=== PATIENT | male | born 1935 | race Caucasian/White ===

== ENCOUNTER → 2018-09-12 | Day surgery (SDC) | payer MEDICARE ==
--- NOTE | 2018-09-10 13:50 | Diagnostic Imaging Report ---
EXAMINATION: CHEST 2 VIEWS INDICATION: Preoperative COMPARISON: None FINDINGS: TUBES and LINES: None. LUNGS: The lung volumes are normal. No focal consolidation or pulmonary edema. PLEURA: No pleural effusion or pneumothorax. HEART AND MEDIASTINUM: The cardiomediastinal silhouette is normal in size and contour. BONES AND SOFT TISSUES: No acute fracture or dislocation. Atherosclerotic calcifications of the thoracic aorta. UPPER ABDOMEN: No free air under the diaphragm. Status post cholecystectomy. IMPRESSION: No focal pneumonia or pulmonary edema. Signed by: Ryan Dyer MD on 09/10/2018 1:47 PM
[2018-09-10 13:59] LABS: BASOPHILS # (AUTO) 0.1 (0.0-0.1); BASOPHILS % 1.2 % (0.0-1.0); EOSINOPHILS # (AUTO) 0.4 (0.0-0.4); EOSINOPHILS % 5.2 % (0.0-6.0); HEMATOCRIT 44.3 % (38.2-49.6); HEMOGLOBIN 14.9 g/dL (14.0-18.0); LYMPHOCYTES # (AUTO) 5.2 (1.0-3.2); LYMPHOCYTES % 61.3 % (18.0-39.1); MEAN CORPUSCULAR HEMOGLOBIN 32.6 pg (28-32); MEAN CORPUSCULAR HGB CONC 33.6 g/dL (31-35); MEAN CORPUSCULAR VOLUME 96.9 fL (81-99); MONOCYTES # (AUTO) 0.7 (0.2-0.8); MONOCYTES % 8.5 % (4.4-11.3); NEUTROPHILS % 23.6 % (38.7-80.0); PLATELET COUNT 211 x10e3/uL (140-360); RED BLOOD COUNT 4.57 x10e6/uL (4.3-5.7); RED CELL DISTRIBUTION WIDTH 13.9 % (11.7-14.4)
[2018-09-10 15:18] LABS: EOSINOPHILS % (MANUAL) 6 % (0-7); LYMPHOCYTES % (MANUAL) 60 % (19-48); MONOCYTES % (MANUAL) 7 % (3.4-9.0); NEUTROPHILS % (MANUAL) 27 % (40-74); PLATELET ESTIMATE ADEQUATE; PLATELET MORPHOLOGY COMMENT NORMAL; RBC MORPHOLOGY COMMENT NORMAL
[~2018-09-12] MED LIST: ASPIRIN81 M2 PO; B&O 60MG R/S 60 MG SUPP PR ONE; CEFTRIAXONE SOD 1 GM/NS 50 ML 50 ML IV ONE; CIPRO500 MG PO; DEXAMETHASONE SOD PHOS INJ 4 MG/ML VIAL ONE; FISH OIL 1,2001 EACH PO; IOPAMIDOL 610MG/1ML 300 MG/ML VIAL IV ONE; LEVAQUIN500 MG PO; LIDOCAINE HCL 2% LOCAL INJ 5 ML SDV VIAL INJ ONE; ONDANSETRON HCL INJ 2MG/ML 2ML 2 MG/ML VIAL ONE; PROPOFOL IV EMULSION 10 MG/ML 20 ML VIAL ONE; SEVOFLURANE INHAL SOLN 250 ML PEN BTL ONE; TYLENOL WITH C1 EACH PO; VITAMIN D31000 UNIT PO; Z.0.AMIODARONE HCL20 PO; Z.0.GABAPENTIN300 MG PO; Z.0.GEMFIBROZIL600 M PO; Z.0.LEVOTHYROXINE50 PO; Z.0.LOVASTATIN40 MG PO; Z.0.PLAVIX75 MG PO; Z.2.DOXAZOSIN MESYLA PO
--- OUTSIDE RECORDS SUMMARY | 2018-09-12 09:42 | XMS REPORT | Summary of Care ---
Author Author [facility] [place] Organization [facility] [place] Address Unknown Phone Unavailable Encounter HQ Encntr_alias(FIN) [id number] Date(s): 04/11/17 - 04/11/17 [facility] [place] [address] [place] [address]- [phone] Encounter Diagnosis Acute bronchitis, unspecified (Final) - 04/15/17 Atelectasis (Final) - Discharge Disposition: Home or Self Care Attending Physician: Adama Larsen MD Vital Signs No data available for this section Problem List No data available for this section Allergies, Adverse Reactions, Alerts Substance Reaction Severity Status NKDA Active Medications No data available for this section Results No data available for this section Immunizations No data available for this section Procedures No data available for this section Social History No data available for this section Assessment and Plan No data available for this section
--- OUTSIDE RECORDS SUMMARY | 2018-09-12 09:42 | XMS REPORT | Summary of Care ---
Author Organization Unknown Address Unknown Phone Unavailable Encounter HQ Reyntr_celso([facility]) [id number] Date(s): 01/08/14 - 01/08/14 [facility] Outpatient Imaging - [address] [address]- [place] Discharge Disposition: Home Physician Attending: Adama Larsen MD Reason for Visit 414.01 - CRNRY ATHRSCL N Problem List No data available for this section Allergies, Adverse Reactions, Alerts Substance Reaction Severity Status NKDA Active Medications No data available for this section Medications Administered During Your Visit No data available for this section Immunizations No data available for this section
--- OUTSIDE RECORDS SUMMARY | 2018-09-12 09:42 | XMS REPORT | Continuity of Care Document ---
Author Author [facility] Organization [facility] Address Unknown Phone Unavailable Care Team Providers Care Pile Trimmer Name Role Phone [employer] [place] Unavailable Unavailable Problems Problem Status Onset Date Classification Date Reported Comments Source Acute bronchitis, unspecified 04/16/2017 07/18/2017 [facility] [place] J20.9 - ACUTE BRONCHITIS, UNSPECIFIED Active 04/11/2017 [facility] [place] PICC FOR UTI Active 08/05/2013 [facility] Atelectasis 07/18/2017 [facility] [place] Medications No Data Provided for This Section Allergies, Adverse Reactions, Alerts No Known Medication Allergies Immunizations No Data Provided for This Section Results No Data Provided for This Section Pathology Reports No Data Provided for This Section Diagnostic Reports Report Value Date Source Chest 2 views DX Exam: Two-view chest x-ray Reason for Exam: - J20.9 Acute bronchitis, unspecified Comparison Exam: X-ray 01/08/2014 Discussion: Cardiomediastinal silhouette is within normal limits. Both hemidiaphragms well visualized. No pulmonary edema or pleural effusions. Mild atelectasis seen within the left lung base. Trachea is midline. No acute bony abnormalities. Impression: 1. Mild atelectasis seen within the left lung base. 04/11/2017 [facility] [place] Chest 2 views CHEST RADIOGRAPHY CLINICAL HISTORY: CAD COMPARISON IMAGIN08/07/2013 FINDINGS: Two views of the chest were acquired and submitted for evaluation. Interval removal of right-sided PICC line. No pneumothorax. No pleural fluid is identified. The contour of the cardiac silhouette is within normal limits. There is no significant pulmonary consolidation or nodularity. Degenerative changes of the spine noted. IMPRESSION: No significant abnormality. 01/08/2014 [facility] [place] Chest 1view PORTABLE CHEST (chest 1 view) 08/07/2013 @ 8: 43 HISTORY: Status post PICC placement. Evaluate catheter position. TECHNIQUE: A portable examination of the chest was obtained following PICC placement. A study 05/05/2008 was reviewed. FINDINGS: 1. The tip of the right upper extremity PICC is in the upper superior vena cava. The catheter is in good position to utilize for venous access. 2. No active disease. The lungs are clear. There are no pleural effusions per there is mild chronic elevation the right hemidiaphragm. 3. Mild cardiomegaly without overt failure. 4. The regional skeleton is unremarkable. Coding: Chest 1view CPT Code: 11822 SL: 13 Cisco Allen M.D. 08/07/2013 [facility] Consultation Notes No Data Provided for This Section Discharge Summaries No Data Provided for This Section History and Physicals No Data Provided for This Section Vital Signs Vital Sign Value Date Comments Source BMI Calculated 36.92 08/07/2013 [facility] Weight 94.545 08/07/2013 [facility] Height 160.02 cm 08/07/2013 [facility] Encounters Location Location Details Encounter Type Encounter Number Reason For Visit Attending Provider ADM Date DC Date Status Source [facility] Outpatient [id number] Miguel Hampel 08/07/2013 08/08/2013 [facility] - [place] Outpt Diag Services [id number] Adama Larsen 01/08/2014 01/09/2014 [facility] [place] [facility] Outpatient [facility] - [place] Outpt Diag Services [id number] Adama Larsen 04/11/2017 04/12/2017 [facility] [place] Procedures No Data Provided for This Section Assessment and Plan No Data Provided for This Section Plan of Care No Data Provided for This Section Social History Social History Date Source No data available for this section 04/12/2017 [facility] [place] Family History No Data Provided for This Section Advance Directives No Data Provided for This Section Functional Status No Data Provided for This Section
--- OUTSIDE RECORDS SUMMARY | 2018-09-12 09:42 | XMS REPORT | Summary of Care ---
Author Organization Unknown Address Unknown Phone Unavailable Encounter HQ Reyntr_nelfransisco([facility]) [id number] Date(s): 08/07/13 - 08/07/13 [facility] [address] [place], [place] [id number] [place] [address] Discharge Disposition: Home Physician Attending: Miguel Kaiser MD Physician_Referring: Miguel Kaiser MD Reason for Visit PICC FOR UTI Vital Signs Most recent to 1 oldest [Reference Range]: Height 160.02 cm (08/07/13 8:33 AM) Weight 94.545 kg (08/07/13 8:33 AM) Body Mass Index 36.92 m2 (08/07/13 8:33 AM) Problem List No data available for this section Allergies, Adverse Reactions, Alerts Substance Reaction Severity Status NKDA Active Medications No data available for this section Medications Administered During Your Visit No data available for this section Immunizations No data available for this section
--- OUTSIDE RECORDS SUMMARY | 2018-09-12 09:42 | XMS REPORT ---
Author Author [facility] Address Unknown Phone Unavailable Care Team Providers Care Regional Agronomist Name Role Phone LINDA STONE Unavailable Unavailable Problems This patient has no known problems. Allergies, Adverse Reactions, Alerts This patient has no known allergies or adverse reactions. Medications This patient has no known medications. Results Test Description Test Time Test Comments Text Results Atomic Results Result Comments CHEST 2 VIEWS 2018-09-10 13:45:00 [place] [address] Patient Name: CARTER STOVER MR #: [id number] : 1935 Age/Sex: 83/M Req #: [id number] Adm Physician: Ordered by: LINDA STONE MD Report #: [id number] Location: OR Room/Bed: Procedure: [id number] DX/CHEST 2 VIEWS Exam Date: Exam Time: REPORT STATUS: Signed EXAMINATION: CHEST 2 VIEWS INDICATION: Preoperative COMPARISON: None FINDINGS: TUBES and LINES: None. LUNGS: The lung volumes are normal. No focal consolidation or pulmonary edema. PLEURA: No pleural effusion or pneumothorax. HEART AND MEDIASTINUM: The cardiomediastinal silhouette is normal in size and contour. BONES AND SOFT TISSUES: No acute fracture or dislocation. Atherosclerotic calcifications of the thoracic aorta. UPPER ABDOMEN: No free air under the diaphragm. Status post cholecystectomy. IMPRESSION: No focal pneumonia or pulmonary edema. Signed by: Kristy Dyer MD on 09/10/2018 1:47 PM Dictated By: KRISTY DYER MD [id number] Transcribed By: LYNDSEY on 09/10/18 1347 COPY TO: LINDA STONE MD
[2018-09-12 13:09] VITALS: BP 134/69
--- NOTE | 2018-10-25 10:43 | Operative Report ---
DATE OF PROCEDURE: 09/12/2018 SURGEON: Miguel Kaiser MD PREOPERATIVE DIAGNOSIS: Gross hematuria. POSTOPERATIVE DIAGNOSIS: Gross hematuria. OPERATIONS PERFORMED: 1. Cystourethroscopy with bilateral ureteral catheterization and retrograde ureteropyelography. 2. Interpretation of retrograde ureteropyelography. 3. Supervision of fluoroscopy, no radiologist is present. ANESTHESIA: General. COMPLICATIONS: None. SUMMARY: Mihai Min is an 83-year-old man with a previous transurethral resection of the prostate remotely. The patient has had gross hematuria and he was brought for evaluation. He is aware of the risks of bleeding, infection, injury to adjacent structures, need for procedures, and elected to proceed. OPERATIVE PROCEDURE IN DETAIL: Informed consent was verified. Mihai Min was properly identified and taken to the operative room, placed on the cystoscopy table in supine position. Anesthesia was uneventfully begun. The patient was then carefully and gently repositioned in the dorsal lithotomy position with all pressure points were well padded. His genitalia were prepared and draped in usual sterile fashion. The 22.5-Azeri cystoscope sheath with visual obturator in place, it was atraumatically inserted into the patient's urethra, it was guided down the unremarkable distal urethra through some wide caliber, probably not clinically significant stricturing in the bulbar urethra. We passed a normal sphincteric region and we went into the prostate bed. Prostate bed was significant for regrowth of BPH with visual obstruction as well as some effusion and adhesions between the lateral lobes. This was causing visual obstruction especially at the distal portion of the prostatic urethra. We entered the patient's bladder and where panendoscopy revealed grade 3 trabeculations with diffuse cellule formation. Normally positioned configured ureteral orifices were identified. An 8-Azeri catheter was used to cannulate each ureter and retrograde ureteropyelography was performed. Interpretation of retrograde ureteropyelography, contrast was instilled in retrograde fashion bilaterally. There were no tumors, no stones, and no diverticula, bilateral J hooking was noted. No suspicious lesions were identified. There were no stones, and there was no obstruction. The patient's bladder was drained. The cystoscope was withdrawn. A belladonna and opium suppositories were placed revealing a 15 g prostate that was smooth, non-fluctuant without any nodules. The patient was then uneventfully reversed from anesthesia and taken to recovery room in stable condition. There were no complications during the procedure. He tolerated the procedure well. Plan will be to return the patient to the operating room for transurethral resection of the prostate for regrowth and obstructive BPH. Since no other source for bleeding was identified, it was presumed that the source of the bleeding is the BPH. Miguel MD BENJI Kaiser/CATIE /[id number] cc: Tanner Batista
== END | disposition home or self-care (01) ==
LOC: OR 09:39
PROVIDERS: ATTEND Urology
DX: R31.0 Gross hematuria (principal); Z98.890 Other specified postprocedural states; N32.89 Other specified disorders of bladder; N40.1 Benign prostatic hyperplasia with lower urinary tract symptoms; N13.8 Other obstructive and reflux uropathy; R39.12 Poor urinary stream; R35.1 Nocturia; R30.0 Dysuria; R39.14 Feeling of incomplete bladder emptying; R97.20 Elevated prostate specific antigen [PSA]; R33.8 Other retention of urine; N41.1 Chronic prostatitis; N47.6 Balanoposthitis; D40.0 Neoplasm of uncertain behavior of prostate; Q54.9 Hypospadias, unspecified; N47.1 Phimosis; I13.0 Hypertensive heart and chronic kidney disease with heart failure and stage 1 through stage 4 chronic kidney disease, or unspecified chronic kidney disease; N18.9 Chronic kidney disease, unspecified; I50.9 Heart failure, unspecified; I25.10 Atherosclerotic heart disease of native coronary artery without angina pectoris; I48.91 Unspecified atrial fibrillation; E78.00 Pure hypercholesterolemia, unspecified; J44.9 Chronic obstructive pulmonary disease, unspecified; E78.5 Hyperlipidemia, unspecified; E03.9 Hypothyroidism, unspecified; E66.9 Obesity, unspecified; Z79.02 Long term (current) use of antithrombotics/antiplatelets; Z79.82 Long term (current) use of aspirin; Z68.35 Body mass index [BMI] 35.0-35.9, adult; Z95.5 Presence of coronary angioplasty implant and graft; Z87.891 Personal history of nicotine dependence; Z01.810 Encounter for preprocedural cardiovascular examination; Z01.812 Encounter for preprocedural laboratory examination; Z01.818 Encounter for other preprocedural examination; Z86.73 Personal history of transient ischemic attack (TIA), and cerebral infarction without residual deficits
CPT/HCPCS: 36415; 52005; 71046; 74420; 85025; 93005; C1758; J0696; J1100; J2001; J2405; J2704; Q9967

== ENCOUNTER 2018-10-29 07:01 | Inpatient (IN) | payer MEDICARE ==
[2018-10-24 16:03] LABS: BASOPHILS # (AUTO) 0.1 (0.0-0.1); BASOPHILS % 0.9 % (0.0-1.0); EOSINOPHILS # (AUTO) 0.4 (0.0-0.4); EOSINOPHILS % 4.6 % (0.0-6.0); HEMATOCRIT 43.8 % (38.2-49.6); HEMOGLOBIN 15.2 g/dL (14.0-18.0); LYMPHOCYTES # (AUTO) 5.1 (1.0-3.2); LYMPHOCYTES % 56.8 % (18.0-39.1); MEAN CORPUSCULAR HEMOGLOBIN 33.1 pg (28-32); MEAN CORPUSCULAR HGB CONC 34.7 g/dL (31-35); MEAN CORPUSCULAR VOLUME 95.4 fL (81-99); MONOCYTES # (AUTO) 0.8 (0.2-0.8); MONOCYTES % 8.6 % (4.4-11.3); NEUTROPHILS # (AUTO) 2.6 (2.1-6.9); NEUTROPHILS % 28.8 % (38.7-80.0); PLATELET COUNT 223 x10e3/uL (140-360); RED BLOOD COUNT 4.59 x10e6/uL (4.3-5.7); RED CELL DISTRIBUTION WIDTH 13.9 % (11.7-14.4)
[2018-10-24 16:41] LABS: EOSINOPHILS % (MANUAL) 3 % (0-7); LYMPHOCYTES % (MANUAL) 53 % (19-48); MONOCYTES % (MANUAL) 8 % (3.4-9.0); NEUTROPHILS % (MANUAL) 36 % (40-74); PLATELET ESTIMATE ADEQUATE; PLATELET MORPHOLOGY COMMENT NORMAL; RBC MORPHOLOGY COMMENT NORMAL
[~2018-10-29] VITALS: Ht 160 cm; Wt 98.8 kg
[~2018-10-29 07:01] MED LIST changes: -B&O 60MG R/S 60 MG SUPP PR ONE; -CEFTRIAXONE SOD 1 GM/NS 50 ML 50 ML IV ONE; -CIPRO500 MG PO; -DEXAMETHASONE SOD PHOS INJ 4 MG/ML VIAL ONE; -IOPAMIDOL 610MG/1ML 300 MG/ML VIAL IV ONE; -LEVAQUIN500 MG PO; -LIDOCAINE HCL 2% LOCAL INJ 5 ML SDV VIAL INJ ONE; -ONDANSETRON HCL INJ 2MG/ML 2ML 2 MG/ML VIAL ONE; -PROPOFOL IV EMULSION 10 MG/ML 20 ML VIAL ONE; -SEVOFLURANE INHAL SOLN 250 ML PEN BTL ONE; -TYLENOL WITH C1 EACH PO
--- OUTSIDE RECORDS SUMMARY | 2018-10-29 07:09 | XMS REPORT | Continuity of Care Document ---
Author Author [facility] Address Unknown Phone Unavailable Care Team Providers Care Online Communications Manager Name Role Phone [employer] Unavailable Unavailable Problems Problem Status Onset Date Classification Date Reported Comments Source Acute bronchitis, unspecified 04/16/2017 07/18/2017 [facility] [place] J20.9 - ACUTE BRONCHITIS, UNSPECIFIED Active 04/11/2017 [facility] [place] PICC FOR UTI Active 08/05/2013 [facility] Atelectasis 07/18/2017 [facility] [place] Medications No Data Provided for This Section [...] within the left lung base. 04/11/2017 [facility] [place] Chest 2 views CHEST RADIOGRAPHY CLINICAL HISTORY: [...] noted. IMPRESSION: No significant abnormality. 01/08/2014 [facility] [place] Chest 1view PORTABLE CHEST (chest 1 view) [...] is unremarkable. Coding: Chest 1view CPT Code: 85191 SL: 13 Cisco Allen M.D. 08/07/2013 [facility] Consultation Notes No Data Provided for This Section Discharge Summaries No Data Provided for This Section History and Physicals No Data Provided for This Section Vital Signs Vital Sign Value Date Comments Source BMI Calculated 36.92 08/07/2013 [facility] Weight 94.545 08/07/2013 [facility] Height 160.02 cm 08/07/2013 [facility] Encounters Location Location Details Encounter Type Encounter Number Reason For Visit Attending Provider ADM Date DC Date Status Source [facility] Outpatient [id number] Miguel Hampel 08/07/2013 08/08/2013 [facility] Outpatient Imaging - [place] Outpt Diag Services [id number] Adama Larsen 01/08/2014 01/09/2014 [facility] [place] [facility] Outpatient Imaging - [place] Out[facility] Di[facility] [id number] Adama Larsen 04/11/2017 04/12/2017 [facility] [place] Procedures No Data Provided for This Section Assessment and Plan No Data Provided for This Section Plan of Care No Data Provided for This Section Social History Social History Date Source No data available for this section 04/12/2017 [facility] [place] Family History No Data Provided for This Section Advance Directives No Data Provided for This Section Functional Status No Data Provided for This Section
[2018-10-29] MEDS ORDERED: GENTAMICIN 80MG/NS 100 ML 100 ML IV ONE (07:34)
[2018-10-29] MEDS ORDERED: CEFTRIAXONE SOD 1 GM/NS 50 ML 50 ML IV ONE (07:35)
[2018-10-29] MEDS ORDERED: B&O 60MG R/S 60 MG SUPP PR ONE (09:20)
[2018-10-29] MEDS ORDERED: IOPAMIDOL 610MG/1ML 300 MG/ML VIAL IV ONE (09:20)
[2018-10-29] MEDS ORDERED: B&O 60MG R/S 60 MG SUPP PR PRN (12:45)
[2018-10-29] MEDS ORDERED: ACETAMINOPHEN/CODEINE 300MG - 30MG TAB PO PRN (12:45)
[2018-10-29] MEDS ORDERED: DIPHENHYDRAMINE HCL 25 MG CAP PO PRN (12:45)
[2018-10-29] MEDS ORDERED: ONDANSETRON HCL INJ 2MG/ML 2ML 2 MG/ML VIAL IV PRN (12:45)
--- OUTSIDE RECORDS SUMMARY | 2018-10-29 12:51 | XMS REPORT | Continuity of Care Document ---
Author Author [facility] Organization [facility] Address Unknown Phone Unavailable Care Team Providers Care Sustainable Design Consultant Name Role Phone [email or web address] Information [employer] Unavailable Unavailable Problems Problem Status Onset Date Classification Date Reported Comments Source Acute bronchitis, unspecified 04/16/2017 07/18/2017 [facility] [place] J20.9 - ACUTE BRONCHITIS, UNSPECIFIED Active 04/11/2017 [facility] [place] PICC FOR UTI Active 08/05/2013 [facility] Atelectasis 07/18/2017 [facility] [place] Medications No Data Provided for This Section [...] within the left lung base. 04/11/2017 [facility] [place] Chest 2 views CHEST RADIOGRAPHY CLINICAL HISTORY: [...] noted. IMPRESSION: No significant abnormality. 01/08/2014 [facility] [place] Chest 1view PORTABLE CHEST (chest 1 view) [...] is unremarkable. Coding: Chest 1view CPT Code: 97560 SL: 13 Cisco Allen M.D. 08/07/2013 [facility] Consultation Notes No Data Provided for This Section Discharge Summaries No Data Provided for This Section History and Physicals No Data Provided for This Section Vital Signs Vital Sign Value Date Comments Source BMI Calculated 36.92 08/07/2013 [facility] Weight 94.545 08/07/2013 [facility] Height 160.02 cm 08/07/2013 [facility] Encounters Location Location Details Encounter Type Encounter Number Reason For Visit Attending Provider ADM Date DC Date Status Source [facility] Outpatient [id number] Miguel Hampel 08/07/2013 08/08/2013 [facility] Outpatient Imaging - [place] Outpt Diag Services [id number] Adama Larsen 01/08/2014 01/09/2014 [facility] [place] [facility] Outpatient Imaging - [place] Outpt Diag Services [id number] Adama Larsen 04/11/2017 04/12/2017 [facility] [place] Procedures No Data Provided for This Section Assessment and Plan No Data Provided for This Section Plan of Care No Data Provided for This Section Social History Social History Date Source No data available for this section 04/12/2017 [facility] [place] Family History No Data Provided for This Section Advance Directives No Data Provided for This Section Functional Status No Data Provided for This Section
[2018-10-29] MEDS ORDERED: FENTANYL CITRATE/PF 100MCG/2 ML INJ ONE ×2 (13:07→18:34)
[2018-10-29] MEDS ORDERED: CEFTRIAXONE SOD 1 GM VIAL IV SCH (15:00)
[2018-10-29] MEDS: D5.45%NS/KCL 20MEQ 1,000 ML IV SCH (15:30)
[2018-10-29 15:47] VITALS: BP 158/80
[2018-10-29 15:58] LABS: BASOPHILS % 0.3 % (0.0-1.0); EOSINOPHILS # (AUTO) 0.1 (0.0-0.4); EOSINOPHILS % 0.6 % (0.0-6.0); HEMATOCRIT 47.7 % (38.2-49.6); HEMOGLOBIN 16.3 g/dL (14.0-18.0); LYMPHOCYTES # (AUTO) 1.5 (1.0-3.2); LYMPHOCYTES % 17.4 % (18.0-39.1); MEAN CORPUSCULAR HEMOGLOBIN 32.9 pg (28-32); MEAN CORPUSCULAR HGB CONC 34.2 g/dL (31-35); MEAN CORPUSCULAR VOLUME 96.2 fL (81-99); MONOCYTES # (AUTO) 0.1 (0.2-0.8); MONOCYTES % 1.6 % (4.4-11.3); NEUTROPHILS # (AUTO) 6.8 (2.1-6.9); NEUTROPHILS % 78.8 % (38.7-80.0); PLATELET COUNT 223 x10e3/uL (140-360); RED BLOOD COUNT 4.96 x10e6/uL (4.3-5.7); RED CELL DISTRIBUTION WIDTH 14.4 % (11.7-14.4)
[2018-10-29] MEDS: CEFTRIAXONE SOD 1 GM/NS 50 ML 50 ML IV SCH (16:13)
[2018-10-29 16:14] LABS: ANION GAP 13.1 mmol/L (8-16); BLOOD UREA NITROGEN 9 mg/dL (7-26); BUN/CREATININE RATIO 10 (6-25); CALCIUM 9.6 mg/dL (8.4-10.2); CARBON DIOXIDE 27 mmol/L (22-29); CHLORIDE 102 mmol/L (98-107); CREATININE, SERUM 0.88 mg/dL (0.72-1.25); EST GLOMERULAR FILTRATION RATE > 60 ML/MIN (60-); GLUCOSE 117 mg/dL (74-118); POTASSIUM 4.1 mmol/L (3.5-5.1); SODIUM 138 mmol/L (136-145)
[2018-10-29] MEDS: PHENAZOPYRIDINE HCL 100 MG TAB PO SCH ×2 (16:22→18:00)
[2018-10-29] MEDS: DOCUSATE SODIUM 100 MG CAP PO SCH (16:23)
[2018-10-29] MEDS ORDERED: ONDANSETRON HCL INJ 2MG/ML 2ML 2 MG/ML VIAL ONE (18:25)
[2018-10-29] MEDS ORDERED: PROPOFOL IV EMULSION 10 MG/ML 20 ML VIAL ONE (18:25)
[2018-10-29] MEDS ORDERED: DEXAMETHASONE SOD PHOS INJ 4 MG/ML VIAL ONE (18:25)
[2018-10-29] MEDS ORDERED: SEVOFLURANE INHAL SOLN 250 ML PEN BTL ONE (18:25)
[2018-10-29] MEDS ORDERED: LIDOCAINE HCL 2% LOCAL INJ 5 ML SDV VIAL INJ ONE (18:25)
[2018-10-29] MEDS ORDERED: EPHEDRINE SULFATE INJ 50 MG/10 ML SYR ONE (18:25)
--- NOTE | 2018-10-29 19:00 | NUR ---
RECEIVED PATIENT IN BEDSIDE REPORT. PATIENT RESTING IN BED AT THIS TIME. PATIENT REPORTS PAIN IS TOLERABLE WITH CBI FLOWING WELL. NO S&S OF DISTRESS NOTED. BED LOCKED IN LOWEST POSITION, SIDE RAILS UPX2, CALL LIGHT IN REACH.
[2018-10-29 20:00] VITALS: BP 120/70
[2018-10-29 20:36] VITALS: BP 120/70
[2018-10-29] MEDS: SIMVASTATIN 20 MG TAB PO SCH (20:50)
[2018-10-29] MEDS: GABAPENTIN 300 MG CAP PO SCH (21:18)
[2018-10-30] VITALS (7 sets, daily range): BP systolic 108–125; BP diastolic 56–64
[2018-10-30] MEDS: D5.45%NS/KCL 20MEQ 1,000 ML IV SCH (01:01)
--- NOTE | 2018-10-30 04:31 | NUR ---
CONTINUOUS BLADDER IRRIGATION CONTINUES. PATIENT STATES IT BEGINS TO HURT MORE WHEN RATE IS DECREASED. URINE PINK. WILL CONTINUE TO MONITOR.
[2018-10-30] MEDS: LEVOTHYROXINE SODIUM 50 MCG TAB PO SCH (05:36)
[2018-10-30 06:29] LABS: BASOPHILS # (AUTO) 0.1 (0.0-0.1); BASOPHILS % 0.3 % (0.0-1.0); EOSINOPHILS % 0.1 % (0.0-6.0); HEMATOCRIT 45.6 % (38.2-49.6); HEMOGLOBIN 15.3 g/dL (14.0-18.0); LYMPHOCYTES # (AUTO) 2.2 (1.0-3.2); MEAN CORPUSCULAR HEMOGLOBIN 32.4 pg (28-32); MEAN CORPUSCULAR HGB CONC 33.6 g/dL (31-35); MEAN CORPUSCULAR VOLUME 96.6 fL (81-99); MONOCYTES # (AUTO) 0.6 (0.2-0.8); MONOCYTES % 4.2 % (4.4-11.3); NEUTROPHILS # (AUTO) 11.8 (2.1-6.9); NEUTROPHILS % 79.9 % (38.7-80.0); PLATELET COUNT 216 x10e3/uL (140-360); RED BLOOD COUNT 4.72 x10e6/uL (4.3-5.7); RED CELL DISTRIBUTION WIDTH 14.1 % (11.7-14.4)
[2018-10-30 06:44] LABS: ANION GAP 11.7 mmol/L (8-16); BLOOD UREA NITROGEN 11 mg/dL (7-26); BUN/CREATININE RATIO 11 (6-25); CALCIUM 9.1 mg/dL (8.4-10.2); CARBON DIOXIDE 22 mmol/L (22-29); CHLORIDE 104 mmol/L (98-107); CREATININE, SERUM 0.97 mg/dL (0.72-1.25); EST GLOMERULAR FILTRATION RATE > 60 ML/MIN (60-); GLUCOSE 167 mg/dL (74-118); POTASSIUM 4.7 mmol/L (3.5-5.1); SODIUM 133 mmol/L (136-145)
[2018-10-30 07:00] LABS: LYMPHOCYTES % (MANUAL) 16 % (19-48); MONOCYTES % (MANUAL) 10 % (3.4-9.0); NEUTROPHILS % (MANUAL) 74 % (40-74)
[2018-10-30 07:01] LABS: PLATELET ESTIMATE SLIGHTLY INCREASED; RBC MORPHOLOGY COMMENT NORMAL
[2018-10-30] MEDS: PHENAZOPYRIDINE HCL 100 MG TAB PO SCH ×3 (08:48→17:43)
[2018-10-30] MEDS: GABAPENTIN 300 MG CAP PO SCH ×2 (08:48→20:11)
[2018-10-30] MEDS: OMEGA 3 POLYUNSAT FATTY ACIDS 1000 MG SOFTGEL PO SCH ×4 (08:48→20:11)
[2018-10-30] MEDS: DOCUSATE SODIUM 100 MG CAP PO SCH ×2 (08:48→17:43)
[2018-10-30] MEDS: CHOLECALCIFEROL 1,000 UNIT TAB PO SCH (08:48)
--- NOTE | 2018-10-30 13:58 | NUR ---
Ambulated with patient in patient's room. Patient tolerated well. Helped patient to the restroom. Patient had small bowel movement and passed gas.
[2018-10-30] MEDS ORDERED: ONDANSETRON HCL 4 MG ORAL DISINTEGRATING TAB PO PRN (17:00)
[2018-10-30] MEDS: CEFTRIAXONE SOD 1 GM/NS 50 ML 50 ML IV SCH (17:43)
--- NOTE | 2018-10-30 19:00 | NUR ---
Received change of shift report from AM nurse. Walking rounds completed.
[2018-10-30] MEDS: SIMVASTATIN 20 MG TAB PO SCH (20:11)
[2018-10-31] VITALS (9 sets, daily range): BP systolic 99–129; BP diastolic 57–72
--- NOTE | 2018-10-31 01:19 | NUR ---
Patient resting quily at this time. Denies pain or discomfort. Rangel irragation continue with no c/o at this time, Light color fluids.
--- NOTE | 2018-10-31 02:41 | NUR ---
Patient resting quitly with no c/o at this time. Continue monitor.
[2018-10-31] MEDS: LEVOTHYROXINE SODIUM 50 MCG TAB PO SCH (05:33)
--- NOTE | 2018-10-31 05:52 | NUR ---
Patient resting quitly with no c/o at this time. Continue monitor.
[2018-10-31 06:23] LABS: BASOPHILS # (AUTO) 0.1 (0.0-0.1); BASOPHILS % 0.6 % (0.0-1.0); EOSINOPHILS # (AUTO) 0.2 (0.0-0.4); EOSINOPHILS % 1.6 % (0.0-6.0); HEMATOCRIT 42.4 % (38.2-49.6); HEMOGLOBIN 14.4 g/dL (14.0-18.0); LYMPHOCYTES # (AUTO) 4.6 (1.0-3.2); LYMPHOCYTES % 32.6 % (18.0-39.1); MEAN CORPUSCULAR HEMOGLOBIN 32.7 pg (28-32); MEAN CORPUSCULAR VOLUME 96.1 fL (81-99); MONOCYTES # (AUTO) 1.1 (0.2-0.8); MONOCYTES % 7.5 % (4.4-11.3); NEUTROPHILS # (AUTO) 8.1 (2.1-6.9); NEUTROPHILS % 56.9 % (38.7-80.0); PLATELET COUNT 211 x10e3/uL (140-360); RED BLOOD COUNT 4.41 x10e6/uL (4.3-5.7); RED CELL DISTRIBUTION WIDTH 14.6 % (11.7-14.4)
[2018-10-31 06:44] LABS: ANION GAP 12.5 mmol/L (8-16); BLOOD UREA NITROGEN 16 mg/dL (7-26); BUN/CREATININE RATIO 20 (6-25); CALCIUM 9.3 mg/dL (8.4-10.2); CARBON DIOXIDE 24 mmol/L (22-29); CHLORIDE 106 mmol/L (98-107); CREATININE, SERUM 0.82 mg/dL (0.72-1.25); EST GLOMERULAR FILTRATION RATE > 60 ML/MIN (60-); GLUCOSE 117 mg/dL (74-118); POTASSIUM 4.5 mmol/L (3.5-5.1); SODIUM 138 mmol/L (136-145)
--- NOTE | 2018-10-31 07:00 | NUR ---
BEDSIDE SHIFT REPORT FROM HEIDY ARNOLD. PT DENIES NEEDS AT THIS TIME.
[2018-10-31] MEDS: GABAPENTIN 300 MG CAP PO SCH ×2 (08:40→20:09)
[2018-10-31] MEDS: OMEGA 3 POLYUNSAT FATTY ACIDS 1000 MG SOFTGEL PO SCH ×4 (08:40→20:09)
[2018-10-31] MEDS: DOCUSATE SODIUM 100 MG CAP PO SCH ×2 (08:40→16:12)
[2018-10-31] MEDS: PHENAZOPYRIDINE HCL 100 MG TAB PO SCH ×3 (08:41→18:05)
[2018-10-31] MEDS: CHOLECALCIFEROL 1,000 UNIT TAB PO SCH (08:41)
--- NOTE | 2018-10-31 12:51 | NUR ---
EDUCATED ABOUT IMM, SIGNED, FILED IN CHART, WITH COPY LEFT WITH FAMILY AT BEDSIDE.
[2018-10-31] MEDS ORDERED: SODIUM CHLORIDE 0.9% 500ML 500 ML IV ONE (14:30)
--- NOTE | 2018-10-31 14:50 | NUR ---
HODGES REMOVED AT THIS TIME WELL RUNNING NS IV. PT ENCOURAGED TO DRINK MORE WATER.
[2018-10-31] MEDS: CEFTRIAXONE SOD 1 GM/NS 50 ML 50 ML IV SCH (16:12)
--- NOTE | 2018-10-31 17:45 | NUR ---
PT BLADDER SCANNED WITH A RESIDUAL OF ONLY 71 ML PRESENT WITH SAME RESULTS X 2. PT ENCOURAGED TO DRINK MORE WATER. NS RUNNING IV.
--- NOTE | 2018-10-31 19:15 | NUR ---
Bedside report walking rounds complete. Pt resting in bed and in no apparent distress. All safety measures ensured and pt call [place] near. Pt to have urine monitored.
[2018-10-31] MEDS: SODIUM CHLORIDE 0.9% 1000ML 1,000 ML IV SCH (19:47)
[2018-10-31] MEDS: SIMVASTATIN 20 MG TAB PO SCH (20:09)
--- NOTE | 2018-10-31 20:40 | NUR ---
Dr. Kaiser called to check on pt. Informed MD pt urine non bloody, orange in color. stated pt ok to be d/c home.
--- NOTE | 2018-10-31 21:54 | NUR ---
Pt concerned about feeling weak and still has some abdominal discomfort. Pt and pts spouse would feel more comfortable if pt stayed again over night to be monitored. Contacted Dr. Kaiser and Dr. Nieto is covering. Spoke with Dr. Nieto and he said the pt needs to go home, he has not seen the pt and I need to follow Dr. Kaiser's orders to d/c pt. He was not concerned about how pt felt and stated that it is not a urological issue. Contacted Dr. Lee to explain pt concern. ok'd for pt to stay again overnight and will follow up on pt tomorrow.
[2018-11-01 04:00] VITALS: BP 143/76
[2018-11-01] MEDS: SODIUM CHLORIDE 0.9% 1000ML 1,000 ML IV SCH (04:11)
[2018-11-01] MEDS: LEVOTHYROXINE SODIUM 50 MCG TAB PO SCH (06:24)
--- NOTE | 2018-11-01 07:00 | NUR ---
BEDSIDE SHIFT REPORT FROM HAT MENDER RN. PT DENIES NEEDS AT THIS TIME.
--- NOTE | 2018-11-01 07:36 | NUR ---
Bedside report walking rounds complete with day shift RN.
[2018-11-01 08:00] VITALS: BP 143/76
[2018-11-01 08:03] VITALS: BP 123/71
[2018-11-01] MEDS: OMEGA 3 POLYUNSAT FATTY ACIDS 1000 MG SOFTGEL PO SCH (08:08)
[2018-11-01] MEDS: DOCUSATE SODIUM 100 MG CAP PO SCH (08:08)
[2018-11-01] MEDS: GABAPENTIN 300 MG CAP PO SCH (08:08)
[2018-11-01] MEDS: PHENAZOPYRIDINE HCL 100 MG TAB PO SCH (08:08)
[2018-11-01] MEDS: CHOLECALCIFEROL 1,000 UNIT TAB PO SCH (08:08)
[2018-11-01 09:32] LABS: BASOPHILS # (AUTO) 0.1 (0.0-0.1); BASOPHILS % 0.9 % (0.0-1.0); EOSINOPHILS # (AUTO) 0.4 (0.0-0.4); EOSINOPHILS % 3.1 % (0.0-6.0); HEMATOCRIT 39.3 % (38.2-49.6); HEMOGLOBIN 13.3 g/dL (14.0-18.0); LYMPHOCYTES # (AUTO) 3.6 (1.0-3.2); LYMPHOCYTES % 30.2 % (18.0-39.1); MEAN CORPUSCULAR HEMOGLOBIN 32.7 pg (28-32); MEAN CORPUSCULAR HGB CONC 33.8 g/dL (31-35); MEAN CORPUSCULAR VOLUME 96.6 fL (81-99); MONOCYTES # (AUTO) 0.7 (0.2-0.8); MONOCYTES % 6.1 % (4.4-11.3); NEUTROPHILS # (AUTO) 6.9 (2.1-6.9); NEUTROPHILS % 58.8 % (38.7-80.0); PLATELET COUNT 207 x10e3/uL (140-360); RED BLOOD COUNT 4.07 x10e6/uL (4.3-5.7); RED CELL DISTRIBUTION WIDTH 14.6 % (11.7-14.4)
[2018-11-01 09:45] LABS: ANION GAP 14.2 mmol/L (8-16); CALCIUM 9.4 mg/dL (8.4-10.2); CREATININE, SERUM 1.74 mg/dL (0.72-1.25); POTASSIUM 4.2 mmol/L (3.5-5.1)
[2018-11-01] MEDS ORDERED: TYLENOL WITH C1 EACH PO (09:56)
[2018-11-01] MEDS ORDERED: LEVAQUIN500 MG PO (09:58)
--- NOTE | 2018-11-01 10:42 | NUR ---
CLEARED BY DR. STONE TO DISCHARGE HOME.
--- NOTE | 2018-11-01 20:13 | Discharge Summary ---
PRIMARY CARE PHYSICIAN: Dr. Tanner Batista. PATHOLOGY LABORATORY AIDE: Dr. Miguel Kaiser. FINAL DIAGNOSES: 1. Enlarged prostate, associated with urinary retention. 2. Status post TURP. 3. Postop hematuria, resolved. SUMMARY: An 83-year-old male with urinary retention secondary to enlarged prostate. The patient is status post TURP procedure. The patient was on continuous irrigation and subsequently Rangel catheter was discontinued. Patient did have some problem with urinating and pain. He received Pyridium. The patient is otherwise stable however. He is doing well, at this time, he is stable. No gross clot. No gross blood, bleeding, or hematuria. The patient will discharge home today. Encouraged increase in oral fluid intake for a few days and will continue with home medication except for aspirin and Plavix. The patient will hold it off for approximately 5 days. The patient to follow up with Dr. Miguel Kaiser within a week. MD MOLINA Nguyen/CATIE /[id number]
--- NOTE | 2018-12-11 06:39 | Operative Report ---
DATE OF PROCEDURE: 10/29/2018 SURGEON: Miguel Kaiser MD PREOPERATIVE DIAGNOSIS: Benign prostatic hypertrophy. POSTOPERATIVE DIAGNOSIS: Benign prostatic hypertrophy. OPERATION PERFORMED: Staged cystourethroscopy with transurethral resection of the prostate utilizing the plasma button electrode. ANESTHESIA: General. COMPLICATIONS: None. 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 He is brought for the above procedures. He is aware of the risks of bleeding, infection, injury to adjacent structures, incontinence, impotence, retrograde ejaculation, need for additional procedures, and elected to proceed. OPERATIVE PROCEDURE IN DETAIL: Informed consent was verified. Mihai Min was properly identified, taken to the operating room, and placed on the cystoscopy table in supine position. Anesthesia was uneventfully begun. The patient was then carefully and gently repositioned in the dorsal lithotomy position with all pressure points well padded. His genitalia were prepared and draped in usual sterile fashion. The resectoscope sheath with obturator in place was atraumatically inserted into the patient's urethra and bladder was drained. Panendoscopy revealed no suspicious mucosal lesions and no stones and no tumors. There was obstructive BPH that was noted. This was noted at prior cystoscopy and retrogrades performed earlier this summer due to hematuria. We utilized the plasma button electrode to vaporize the prostate from the bladder neck tube, but never passed the verumontanum and down the surgical capsule. Pinpoint electrocautery was utilized to achieve hemostasis. Once excellent hemostasis was achieved and all resection was completed, the patient had wide open prostatic bed with excellent hemostasis. The resectoscope was withdrawn. A continuous flow irrigation Rangel was then placed. It was irrigated to and fro to ensure it worked properly. Clear efflux was obtained with continuous bladder irrigation. A belladonna and opium suppository were placed revealing a large smooth prostate without any nodules. The patient was then uneventfully reversed from anesthesia and taken to recovery room in stable condition. There were no complications to the procedure. The patient tolerated the procedure well. Estimated blood loss was minimal. We will proceed with routine postoperative care including continuous irrigation, analgesics, and antibiotics and of course lifelong urological followup. Miguel Kaiser MD [facility] /[id number]
== END 2018-11-01 10:48 | disposition home or self-care (01) | DRG 713 ==
LOC: OR 07:01 → PACU V 12:46 → MED/SURG 14:20
PROVIDERS: ADMIT Internal Medicine; ATTEND Internal Medicine
PROC: 0VT08ZZ Resection of Prostate, Via Natural or Artificial Opening Endoscopic (ICD-10-PCS; principal; 2018-10-29 09:30)
DX: N40.1 Benign prostatic hyperplasia with lower urinary tract symptoms (principal); E87.1 Hypo-osmolality and hyponatremia; E78.5 Hyperlipidemia, unspecified; E03.9 Hypothyroidism, unspecified; I25.10 Atherosclerotic heart disease of native coronary artery without angina pectoris; Z86.73 Personal history of transient ischemic attack (TIA), and cerebral infarction without residual deficits; I48.91 Unspecified atrial fibrillation; Z79.01 Long term (current) use of anticoagulants; R33.8 Other retention of urine; R31.9 Hematuria, unspecified
CPT/HCPCS: 36415; 80048; 83735; 85025; J0696; J1100; J1580; J2001; J2405; J3010; J7030; J7040

== ENCOUNTER 2018-11-04 17:09 | Emergency (ER) | payer MEDICARE ==
[~2018-11-04] VITALS: Ht 160 cm; Wt 98.4 kg
[~2018-11-04 17:09] MED LIST changes: +LEVAQUIN500 MG PO; +TYLENOL WITH C1 EACH PO
--- OUTSIDE RECORDS SUMMARY | 2018-11-04 17:12 | XMS REPORT | Continuity of Care Document ---
Author Author [facility] Organization [facility] Address Unknown Phone Unavailable Care Team Providers Care Laboratory Technology Teacher Name Role Phone [employer] Unavailable Unavailable Problems Problem Status Onset Date Classification Date Reported Comments Source Acute bronchitis, unspecified 04/16/2017 07/18/2017 [facility] [place] J20.9 - ACUTE BRONCHITIS, UNSPECIFIED Active 04/11/2017 [facility] [place] PICC FOR UTI Active 08/05/2013 [facility] Atelectasis 07/18/2017 [facility] [place] Medications No Data Provided for This Section [...] within the left lung base. 04/11/2017 [facility] [place] Chest 2 views CHEST RADIOGRAPHY CLINICAL HISTORY: [...] noted. IMPRESSION: No significant abnormality. 01/08/2014 [facility] [place] Chest 1view PORTABLE CHEST (chest 1 view) [...] is unremarkable. Coding: Chest 1view CPT Code: 10139 SL: 13 Cisco Allen M.D. 08/07/2013 [facility] Consultation Notes No Data Provided for This Section Discharge Summaries No Data Provided for This Section History and Physicals No Data Provided for This Section Vital Signs Vital Sign Value Date Comments Source BMI Calculated 36.92 08/07/2013 [facility] Weight 94.545 08/07/2013 [facility] Height 160.02 cm 08/07/2013 [facility] Encounters Location Location Details Encounter Type Encounter Number Reason For Visit Attending Provider ADM Date DC Date Status Source [facility] Outpatient [id number] Miguel Hampel 08/07/2013 08/08/2013 [facility] Outpatient Imaging [facility] [place] Out[facility] Diag Services [id number] Adama Larsen 01/08/2014 01/09/2014 [facility] [place] [facility] Outpatient Imaging [facility] [place] Out[facility] [id number] Adama Larsen 04/11/2017 04/12/2017 [facility] [place] Procedures No Data Provided for This Section Assessment and Plan No Data Provided for This Section Plan of Care No Data Provided for This Section Social History Social History Date Source No data available for this section 04/12/2017 [facility] [place] Family History No Data Provided for This Section Advance Directives No Data Provided for This Section Functional Status No Data Provided for This Section
[2018-11-04 20:18] LABS: BILIRUBIN,URINE NEGATIVE (NEGATIVE); CLARITY,URINE CLOUDY (CLEAR); COLOR,URINE RED (YELLOW); KETONES,URINE NEGATIVE (NEGATIVE); LEUKOCYTE ESTERASE ,URINE MODERATE (NEGATIVE); NITRITE,URINE NEGATIVE (NEGATIVE); PROTEIN,URINE DIPSTICK 2+ (NEGATIVE); URINE UROBILINOGEN 0.2 mg/dL (0.2 - 1)
[2018-11-04 20:29] LABS: BACTERIA,URINE MODERATE /HPF; RBC,URINE 21-50 /HPF (0-5)
[2018-11-04] MEDS ORDERED: CIPRO500 MG PO (20:47)
[2018-11-04 21:16] VITALS: BP 130/59
== END 2018-11-04 21:19 | disposition home or self-care (01) ==
LOC: ER 17:09
DX: R30.0 Dysuria (principal); N30.91 Cystitis, unspecified with hematuria; R33.9 Retention of urine, unspecified; N40.1 Benign prostatic hyperplasia with lower urinary tract symptoms; I25.10 Atherosclerotic heart disease of native coronary artery without angina pectoris; E03.9 Hypothyroidism, unspecified
CPT/HCPCS: 51700; 81001; 99283

== ENCOUNTER 2022-07-18 19:25 | Emergency (ER) | payer MEDICARE ==
[~2022-07-18] VITALS: Ht 160 cm; Wt 98.4 kg
[~2022-07-18 19:25] MED LIST changes: +CEFUROXIME250 MG PO; +CEPHALEXIN500 MG PO; +CIPRO500 MG PO; +ZOFRAN4 MG PO
[2022-07-18 21:17] LABS: CLARITY,URINE SL CLOUDY (CLEAR); COLOR,URINE YELLOW (YELLOW); KETONES,URINE NEGATIVE (NEGATIVE); LEUKOCYTE ESTERASE ,URINE NEGATIVE (NEGATIVE); NITRITE,URINE NEGATIVE (NEGATIVE); PROTEIN,URINE DIPSTICK NEGATIVE (NEGATIVE); URINE UROBILINOGEN 1 mg/dL (0.2 - 1)
[2022-07-18 21:18] VITALS: O2SAT 99
[2022-07-18 21:31] LABS: AMORPHOUS SEDIMENT,URINE MODERATE (FEW); BACTERIA,URINE MODERATE /HPF
== END 2022-07-18 21:36 | disposition home or self-care (01) ==
LOC: ER 19:34
DX: K59.00 Constipation, unspecified (principal); R30.0 Dysuria
CPT/HCPCS: 51700; 81001; 87086; 99283